=== PATIENT | female | born 1975 | race African-American/Black ===

== ENCOUNTER 2018-01-15 20:14 | Emergency (ER) | payer OTHER | END 2018-01-15 21:15 | disposition home or self-care (01) | LOC: FTE 20:14 → E/R 21:15 | DX: H10.13 Acute atopic conjunctivitis, bilateral (principal); H10.9 Unspecified conjunctivitis | CPT/HCPCS: 99283; Z7502 ==

== ENCOUNTER 2018-01-26 19:46 | Emergency (ER) | payer OTHER | END 2018-01-26 20:41 | disposition home or self-care (01) | LOC: E/R 20:41 | DX: H10.32 Unspecified acute conjunctivitis, left eye (principal) | CPT/HCPCS: 99283; Z7502 ==